=== PATIENT | female | born 1975 | race Two or more races ===

== ENCOUNTER 2016-10-17 09:13 | Emergency (ER) | payer MEDICAID ==
[~2016-10-17] VITALS: Ht 152.4 cm; Wt 81.6 kg
[2016-10-17 09:24] VITALS: BP 121/76
== END 2016-10-17 10:41 | disposition home or self-care (01) ==
LOC: ER 09:16
DX: S39.012A Strain of muscle, fascia and tendon of lower back, initial encounter (principal); X58.XXXA Exposure to other specified factors, initial encounter; Y93.89 Activity, other specified; Y99.8 Other external cause status; Y92.89 Other specified places as the place of occurrence of the external cause

== ENCOUNTER 2022-07-02 16:53 | Emergency (ER) | payer MEDICAID ==
[~2022-07-02] VITALS: Ht 152.4 cm; Wt 85.7 kg
[2022-07-02 21:40] VITALS: BP 101/60
== END 2022-07-02 22:08 | disposition home or self-care (01) ==
LOC: ER 16:53
DX: M25.561 Pain in right knee (principal); W18.39XA Other fall on same level, initial encounter; Y93.89 Activity, other specified; Y92.89 Other specified places as the place of occurrence of the external cause; Y99.8 Other external cause status
CPT/HCPCS: 73562

== ENCOUNTER 2023-09-24 15:29 | Emergency (ER) | payer SELFPAY ==
[~2023-09-24] VITALS: Ht 154.9 cm; Wt 84.6 kg
[2023-09-24 18:14] LABS: Urine Bacteria None Seen /hpf (None Seen)
[2023-09-24 18:33] LABS: Urine Blood Negative /uL (Negative); Urine Clarity Clear (Clear); Urine Color Colorless (Yellow); Urine Protein, UAD Negative (Negative); Urine Specific Gravity 1.008 (1.001-1.035); Urine Urobilinogen Normal (Negative); Urine WBC 1 /hpf (0 - 5)
[2023-09-24] MEDS: KETOROLAC TROMETH 60MG/2ML VIAL IM ONE (19:01)
[2023-09-24 21:39] LABS: Alanine Aminotransferase 24 U/L (7-40); Albumin 4.3 g/dL (3.2-4.8); Alkaline Phosphatase 147 U/L (46-116); Anion Gap 6 (5-15); Aspartate Aminotransferase 16 U/L (13-40); BUN/Creatinine Ratio 12.3 (10.0-20.0); Bilirubin, Total 0.3 mg/dL (0.2-1.0); Blood Urea Nitrogen 8 mg/dL (9-23); Calcium 9.4 mg/dL (8.5-10.1); Carbon Dioxide 27 mmol/L (20-30); Chloride 106 mmol/L (98-107); Glucose 94 mg/dL (74-106); Potassium 4.4 mmol/L (3.5-5.1); Sodium 139 mmol/L (136-145)
[2023-09-24 21:40] LABS: Total Protein 7.2 g/dL (5.7-8.2)
[2023-09-24 21:59] LABS: Basophils # (auto) 0 10 ^3/uL (0-0.2); Basophils % (auto) 0.5 % (0.0-2.0); Eosinophils # (auto) 0.1 10 ^3/uL (0-0.8); Hematocrit 42.4 % (36.0-46.0); Lymphocytes # (auto) 2.7 10 ^3/uL (0.4-5.4); Lymphocytes % (auto) 27.9 % (10.0-50.0); Mean Corpuscular Hemoglobin 29.8 pg (28.0-32.0); Mean Corpuscular Hgb Conc. 33.1 g/dL (32.0-36.0); Mean Corpuscular Volume 89.9 fL (80.0-100.0); Monocytes # (auto) 0.6 10 ^3/uL (0-1.3); Monocytes % (auto) 5.9 % (0.0-12.0); Neutrophils # (auto) 6.2 10 ^3/uL (1.6-8.6); Neutrophils % (auto) 64.7 % (37.0-80.0); Nucleated Red Blood Cells % 0.1 %; Red Blood Cells 4.72 10^6/uL (4.0-5.20); Red Cell Distribution Width 13.6 % (11.8-14.3); White Blood Cell 9.5 10^3/uL (4.4-10.8)
[2023-09-24 22:13] VITALS: BP 106/66; PULSE 69; RESP 18; TEMP 97.9; O2SAT 98
[2023-09-24] MEDS ORDERED: IPRATROPIUM BROM 0.5 MG/2.5ML INH SOL ONE (22:59)
[2023-09-24] MEDS ORDERED: ALBUTEROL SULF 2.5 MG/0.5ML(0.5%) NEB SOLN ONE (22:59)
== END 2023-09-24 22:13 | disposition home or self-care (01) ==
LOC: ER 15:29
DX: M54.50 Low back pain, unspecified (principal)
CPT/HCPCS: 36415; 74176; 80053; 81001; 85025; 96372; 99285; J1885; J7644

== ENCOUNTER 2024-09-10 02:06 | Emergency (ER) | payer MEDICAID ==
[~2024-09-10] VITALS: Ht 154.9 cm; Wt 85.3 kg
--- NOTE | 2024-09-10 03:38 | ED.PDOC ---
Danielle. trauma (HPI) HPI Comments THIS IS A 49-YEAR-OLD FEMALE PRESENTS TO THE ED CHIEF COMPLAINT STATUS POST FALL SLIPPED SLIP AND FALL FELL ON HER RIGHT SIDE INJURING HER RIGHT LOWER RIBS. COMPLAINING OF RIB PAIN 8/10 ON PAIN SCALE SHARP SHOOTING WORSE WITH DEEP INSPIRATION. DENIES ANY OTHER KNOWN INJURY. DENIES NECK PAIN, BACK PAIN DENIES HITTING HER HEAD AND LOC. 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 History Family History Family History: Unknown Social History Smoker: Non-Smoker Alcohol: Denies ETOH Use Drugs: Denies Drug Use Lives In: Home Constitutional: denies: chills, diaphoresis, fatigue, fever, malaise, sweats, weakness, others EENTM: denies: blurred vision, double vision, ear bleeding, ear discharge, ear drainage, ear pain, ear ringing, eye pain, eye redness, hearing loss, mouth pain, mouth swelling, nasal discharge, nose bleeding, nose congestion, nose pain, photophobia, tearing, throat pain, throat swelling, voice changes, others Respiratory: denies: cough, hemoptysis, orthopnea, SOB at rest, shortness of breath, SOB with excertion, stridor, wheezing, others Cardiovascular: denies: chest pain, dizzy spells, diaphoresis, Dyspnea on exertion, edema, irregular heart beat, left arm pain, lightheadedness, palpitations, PND, syncope, others Gastrointestinal: denies: abdomen distended, abdominal pain, blood streaked bowels, constipated, diarrhea, dysphagia, difficulty swallowing, hematemesis, melena, nausea, poor appetite, poor fluid intake, rectal bleeding, rectal pain, vomiting, others Genitourinary: denies: abnormal vagina bleeding, burning, dyspareunia, dysuria, flank pain, frequency, hematuria, incontinence, pain, , vagina discha rge, urgency, others Neurological: denies: dizziness, fainting, headache, left sided numbness, left sided weakness, numbness, paresthesia, pre-existing deficit, right sided numbness, right sided weakness, seizure, speech problems, tingling, tremors, weakness, others Musculoskeletal: reports: others (RIGHT LOWER RIB PAIN); denies: back pain, gout, joint pain, joint swelling, muscle pain, muscle stiffness, neck pain Integumetry: denies: bruises, change in color, change in hair/nails, dryness, laceration, lesions, lumps, rash, wounds, others Allergic/Immunocompromised: denies: Difficulty Healing, Frequent Infections, Hives, Itching, others Hematologic/Lymphatic: denies: anemia, blood clots, easy bleeding, easy bruising, swollen glands, others Endocrine: denies: excessive hunger, excessive sweating, excessive thirst, excessive urination, flushing, intolerance to cold, intolerance to heat, unexplained weight gain, unexplained weight loss, others Psychiatric: denies: anxiety, bipolar disorder, depression, hopeless, panic disorder, schizophrenia, sleepless, suicidal, others Physical Exam General Appearance: No Apparent Distress, Normal HEENT: Pharynx Normal Neck: Full Range of Motion, Non-Tender Respiratory: Lungs Clear, No Respiratory Distress, Normal Breath Sounds, Other (RIGHT LOWER LATERAL RIBCAGE MODERATE TENDERNESS ON PALPATION NO NOTED CREPITUS, OR FLAIL CHEST TRACE ECCHYMOSIS NO EDEMA OPEN LESIONS LACERATIONS OR ABRASIONS) Cardiovascular: No Edema, No JVD, No Murmur, No Gallop, Normal Peripheral Pulses, Regular Rate/Rhythm Breast Exam: Deferred Gastrointestinal: No Organomegaly, Non Tender, No Pulsatile Mass, Normal Bowel Sounds, Soft Genitalia: Deferred Pelvic: Deferred Rectal: Deferred Extremities: Normal capillary refill, Normal inspection, Normal range of motion, Non-tender, No pedal edema Musculoskeletal : Apperance: Normal Neurologic: Alert, real estate sales associate II-XII nml as Tested, No Motor Deficits, Normal Affect, Normal Mood, No Sensory Deficits Cerebellar Function: Normal Reflexes: Normal Skin: Dry, Normal Color, Warm Lymphatic: No Adenopathy Was a procedure done? Was a procedure done?: No Differential Diagnosis Multiple Trauma: Fractures, Pneumothorax, Contusion X-Ray, Labs, Meds, VS Vital Signs Date Time Temp Pulse Resp B/P (MAP) Pulse Ox O2 Delivery O2 Flow Rate FiO2 09/10/24 02:21 97.9 81 20 128/71 (90) 97 97.9 X-Ray, Labs, Meds, VS Comment RIGHT RIB X-RAY SHOWS NO ACUTE FRACTURES OSSEOUS LESIONS SUBLUXATIONS OR DISLOCATIONS. PATIENT GIVEN TORADOL 60 MG IM AND NORCO 5 MG P.O. REPORTS IMPROVEMENT IN PAIN AND FUNCTION REQUESTING DISCHARGE AT THIS TIME SCRIPT IBUP ROFEN 800 MG ADVISED TO TAKE MEDICATION PRESCRIBED SIDE EFFECTS DISCUSSED. ADVISED TO FOLLOW UP WITH HER PCP IN 2 DAYS CONSIDER FURTHER IMAGING SUCH CT OR MRI IF SYMPTOMS PERSIST. ER RETURN PRECAUTIONS GIVEN PATIENT INDICATES UNDERSTANDING AND AGREES WITH DISCHARGE PLAN OF CARE. Time of 1ST Reevaluation: 03:38 Reevaluation 1ST: Unchanged Reevaluation 2ND: Improved Patient Education/Counseling: Diagnosis, Treatment, Prognosis, Need For Follow Up Family Education/Counseling: No Family Present Departure 1 Departure Time of Disposition: 04:15 Impression: Primary Impression: Contusion of rib on right side Qualified Codes: S20.211A - Contusion of right front wall of thorax, initial encounter Disposition: 01 HOME / SELF CARE / HOMELESS Condition: Stable e-Prescriptions Diclofenac Potassium (Diclofenac Potassium) 50 Mg Tab 1 TAB PO BID PRN for 7 Days, #14 TAB Prov: XAVI CAUSEY 09/10/24 Discharged With: Significant Other Critical Care Note Critical Care Time?: No Stability Stability form required: XAVI Yancey September 10, 2024 03:38
--- NOTE | 2024-09-10 04:12 | DVH ---
EXAMINATION: XY R RIB XRAY INDICATION: RIGHT LOWER RIB PAIN/INJURY COMPARISON: None TECHNIQUE: Frontal view of the chest and multiple views of the right ribs history FINDINGS: No focal consolidation, pleural effusion or significant pneumothorax. Normal cardiomediastinal silhou ette. No displaced right rib fracture. IMPRESSION: 1. No radiographic evidence of acute cardiopulmonary disease. 2. No displaced right rib fracture.
[2024-09-10] MEDS ORDERED: DICL50TA2 PO (04:17)
[2024-09-10] MEDS: HYDROcodone-ACET 5/325MG TAB PO ONE (04:19)
[2024-09-10 04:20] VITALS: BP 128/77; PULSE 67; RESP 17; TEMP 98; O2SAT 98
[2024-09-10] MEDS: KETOROLAC TROMETH 60MG/2ML VIAL IM ONE (04:20)
== END 2024-09-10 04:47 | disposition home or self-care (01) ==
LOC: ER 02:06
DX: S20.211A Contusion of right front wall of thorax, initial encounter (principal); Z98.890 Other specified postprocedural states; W01.0XXA Fall on same level from slipping, tripping and stumbling without subsequent striking against object, initial encounter; Y93.89 Activity, other specified; Y92.89 Other specified places as the place of occurrence of the external cause; Y99.8 Other external cause status
CPT/HCPCS: 71101; 96372; 99283; J1885